=== PATIENT | female | born 1995 | race Caucasian/White ===

== ENCOUNTER 2022-01-19 18:24 | Emergency (ER) | payer OTHER ==
[2022-01-19 19:05] VITALS: BP 105/66; PULSE 107; RESP 18; TEMP 98; BMI 23.2
[2022-01-19] MEDS ORDERED: IBUPROFEN 600 MG TABLET (FP) PO ONE ×2 (19:44→20:09)
[2022-01-19] MEDS ORDERED: DEXAMETHASONE LIQUID 0.5 MG/5 ML PO ONE (19:44)
[2022-01-19] MEDS ORDERED: DEXAMETHASONE SOD PHOSPHATE 10 MG/1 ML VIAL ONE (20:09)
[2022-01-19 20:17] LABS: THROAT:GRP A STREP DETECTED (NOTDETECTED)
== END 2022-01-19 20:21 | disposition home or self-care (01) ==
LOC: JER 18:24
DX: R07.0 Pain in throat (principal)
CPT/HCPCS: 0241U-QW; 87651; 99283-25